=== PATIENT | female | born 1975 | race Two or more races ===

== ENCOUNTER 2018-10-04 12:18 | Emergency (ER) | payer OTHER ==
[2018-10-04 13:03] VITALS: BP 122/81
[2018-10-04 13:20] LABS: Influenza A Molecular POSITIVE (Negative)
--- NOTE | 2018-10-04 13:23 | UC ---
FLU HPI - HPI Summary HPI Summary: 43-year-old woman comes in with a chief complaint of 2 weeks of sinusitis symptoms. She said yellow and green rhinorrhea and sinus pressure. It has waxed and waned and it did get a little better for a while after taking some [id number] medications but then it got worse again. Go to today because last 24 hours she's felt a lot worse bodyaches fevers chills. [id number] medicine does help with symptoms some but then the symptoms come back. Also has been noticing some chest wheezing. - History of Current Complaint Chief Complaint: UCGeneralIllness Stated Complaint: SINUS PAIN, FLU-LIKE SYMPTOMS Time Seen by Provider: 10/04/18 13:11 Hx Last Menstrual Period: 09/25/2013 Pain Intensity: 5 - Allergy/Home Medications Allergies/Adverse Reactions: Allergies Allergy/AdvReac Type Severity Reaction Status Date / Time MS Penicillins [Penicillins] Allergy Severe Hives Verified 10/12/13 20:01 Penicillins Allergy Hives Verified 10/04/18 13:04 Home Medications: Home Medications Loratadine 10 mg PO DAILY 10/04/18 [History Confirmed 10/04/18] PARoxetine HCL TAB* [Paxil TAB*] 20 mg PO DAILY 10/04/18 [History Confirmed ] buPROPion TAB* [Wellbutrin TAB*] 100 mg PO DAILY 10/04/18 [History Confirmed ] PMH/Surg Hx/FS Hx/Imm Hx Previously Healthy: Yes - Surgical History Surgical History: Yes Surgery Procedure, Year, and Place: cyst on thumb; tonsils; aydin; breast reduction - Family History Known Family History: Positive: Non-Contributory - Social History Alcohol Use: Occasionally Substance Use Type: None Smoking Status (MU): Former Smoker Type: Cigarettes Amount Used/How Often: few cigs per month Have You Smoked in the Last Year: No Review of Systems All Other Systems Reviewed And Are Negative: Yes Constitutional: Positive: Fever, Chills Skin: Positive: Negative Eyes: Positive: Negative ENT: Positive: Sore Throat, Nasal Discharge, Sinus Congestion, Sinus Pain/ Tenderness Respiratory: Positive: Cough, Other - WHEEZING Cardiovascular: Positive: Negative Gastrointestinal: Positive: Negative Motor: Positive: Negative Neurovascular: Positive: Negative Musculoskeletal: Positive: Negative Neurological: Positive: Negative Psychological: Positive: Negative Is Patient Immunocompromised?: No Physical Exam Triage Information Reviewed: Yes Appearance: No Pain Distress, Well-Nourished, Ill-Appearing - MILD Vital Signs: Initial Vital Signs Temp 98.3 F 10/04/18 13:01 Pulse 110 10/04/18 13:01 Resp 20 10/04/18 13:01 BP 122/81 10/04/18 13:01 Pulse Ox 100 10/04/18 13:01 Vital Signs Reviewed: Yes Eye Exam: Normal Eyes: Positive: Conjunctiva Clear ENT: Positive: Pharyngeal erythema, Nasal congestion, Nasal drainage, TMs normal Neck exam: Normal Neck: Positive: Supple Respiratory: Positive: No respiratory distress, Wheezing Cardiovascular: Positive: Tachycardia Musculoskeletal Exam: Normal Musculoskeletal: Positive: Strength Intact, ROM Intact Neurological Exam: Normal Neurological: Positive: Alert, Muscle Tone Normal Psychological Exam: Normal Psychological: Positive: Age Appropriate Behavior Skin Exam: Normal Flu Course/Dx - Differential Dx/Diagnosis Provider Diagnosis: Sinusitis, Bronchospasm, Influenza Discharge - Sign-Out/Discharge Documenting (check all that apply): Patient Departure All imaging exams completed and their final reports reviewed: No Studies - Discharge Plan Condition: Stable Disposition: HOME Prescriptions: Albuterol HFA INHALER* [Ventolin HFA Inhaler*] 2 puff INH Q4H PRN #1 mdi PRN Reason: Wheezing Oseltamivir CAP* [Tamiflu CAP*] 75 mg PO BID #10 cap Sulfamethox/Trimethoprim DS* [Bactrim DS 800/160 TAB*] 1 tab PO BID #20 tab Patient Education Materials: Sinusitis (ED), Influenza (ED), Bronchospasm (ED) Referrals: Chi Brown MD [Primary Care Provider] - Additional Instructions: FOLLOW UP WITH YOUR DOCTOR IF NOT COMPLETELY IMPROVED. GET RECHECKED FOR ANY WORSENING OF YOUR CONDITION OR QUESTIONS OR CONCERNS. - Billing Disposition and Condition Condition: STABLE Disposition: Home
== END 2018-10-04 13:30 | disposition home or self-care (01) ==
LOC: UCEAST 12:18
DX: J11.1 Influenza due to unidentified influenza virus with other respiratory manifestations (principal); J32.9 Chronic sinusitis, unspecified; J98.01 Acute bronchospasm; Z87.891 Personal history of nicotine dependence; Z88.0 Allergy status to penicillin
CPT/HCPCS: 99212; G0463